=== PATIENT | male | born 1945 | race Caucasian/White ===

== ENCOUNTER 2019-09-20 16:39 | Emergency (ER) | payer BC, MEDICARE ==
[~2019-09-20] VITALS: Ht 170.2 cm; Wt 68.0 kg
--- NOTE | 2019-09-20 16:49 | NUR ---
DR OLIVER AT BEDSIDE FOR EVAL. PATIENT IS A/A/OX3 IN NO DISTRESS. DENIES SOB OR CHEST PAIN. C/O SORE THROAT
== END 2019-09-20 17:35 | disposition home or self-care (01) ==
LOC: ER 16:42
DX: B37.0 Candidal stomatitis (principal)
CPT/HCPCS: A4663

== ENCOUNTER 2019-12-01 00:35 | Emergency (ER) | payer MEDICARE, BC ==
[~2019-12-01] VITALS: Ht 170.2 cm; Wt 65.8 kg
[2019-12-01] MEDS ORDERED: IRBE300T19 PO (00:44)
--- NOTE | 2019-12-01 00:49 | NUR ---
MD Lisa noted assessing patient at this time
[2019-12-01 00:57] VITALS: BP 178/95
--- NOTE | 2019-12-01 00:59 | NUR ---
Patient discharged to home in stable condition. Rx given. Patient ambulated out of unit. No signs of distress noted. Written and verbal after care instructions given. Patient verbalizes understanding of instructions. Stressed follow up or return to ER for worsening s/s.
== END 2019-12-01 01:00 | disposition home or self-care (01) ==
LOC: ER 00:38
DX: H66.92 Otitis media, unspecified, left ear (principal); H60.92 Unspecified otitis externa, left ear
CPT/HCPCS: A4663